=== PATIENT | male | born 1940 | race Caucasian/White ===

== ENCOUNTER 2019-04-03 08:49 | Day surgery (SDC) | payer MEDICARE, BC ==
[2019-04-03] MEDS: CYCLOPENTOLATE 2% 2 ML OPH OPER (09:29)
[2019-04-03] MEDS: MOXIFLOXACIN 0.5% 3 ML OPH OPER (09:29)
[2019-04-03] MEDS: NEPAFENAC 0.1% 3 ML OPH OPER (09:29)
[2019-04-03] MEDS: PHENYLephrine 10% 5 ML OPH OPER (09:29)
[2019-04-03] MEDS ORDERED: LIDOCAINE 2% (SDV) 5 ML INJ (10:34)
[2019-04-03] MEDS ORDERED: EPHEDrine 25 MG/5 ML SYG (10:34)
[2019-04-03] MEDS ORDERED: PROPOFOL 20 ML (11:13)
[2019-04-03] MEDS ORDERED: MIDAZOLAM 1 MG/ML 2 ML INJ (11:20)
[2019-04-03] MEDS ORDERED: METOCLOPRAMIDE 10 MG INJ IV (12:30)
[2019-04-03] MEDS ORDERED: EPHEDrine 25 MG/5 ML SYG IV (12:30)
[2019-04-03] MEDS ORDERED: MEPERIDINE 25 MG INJ IV (12:30)
[2019-04-03] MEDS ORDERED: hydrALAzine 20 MG INJ IV (12:30)
[2019-04-03] MEDS ORDERED: FENTAnyl 50 MCG/ML VIAL IV ×3 (12:30)
[2019-04-03] MEDS ORDERED: DIPHENHYDRAMINE 50 MG INJ IV (12:30)
[2019-04-03] MEDS ORDERED: MIDAZOLAM 1 MG/ML 2 ML INJ IV (12:30)
[2019-04-03] MEDS ORDERED: ONDANSETRON 4 MG INJ IV (12:30)
[2019-04-03] MEDS ORDERED: OXYCODONE/ACETAMINOPHEN (5/325) TAB PO (12:30)
[2019-04-03] MEDS ORDERED: LABETALOL HCL 20MG INJ IV (12:30)
[2019-04-03] MEDS ORDERED: CARBACHOL 0.01% 1.5 ML OPH INJ (12:55)
[2019-04-03] MEDS: OXYCODONE/ACETAMINOPHEN (5/325) TAB PO (14:49)
== END 2019-04-03 15:34 | disposition home or self-care (01) ==
LOC: SDS 08:49
DX: H25.12 Age-related nuclear cataract, left eye (principal)
CPT/HCPCS: 66984